=== PATIENT | female | born 1955 | race Caucasian/White ===

== ENCOUNTER 2017-03-12 13:00 | Emergency (ER) | payer OTHER ==
[2017-03-12 13:43] LABS: % IMMATURE GRANULYOCYTES 0.4 % (0.0-1.1); ABSOLUTE IMMATURE GRANULOCYTES 0.03 10^3/uL (0.00-0.10); ADD DIFF? NO; ADD MORPH? NO; ADD SCAN? NO; ATYPICAL LYMPHOCYTE FLAG 0 (0-99); FRAGMENT RBC FLAG 0 (0-99); HEMATOCRIT 42.1 % (38.0-47.0); LEFT SHIFT FLG 0 (0-99); LIPEMIA HEMOLYSIS FLAG 80 (0-99); MEAN CELL HEMOGLOBIN 30.8 pg (27.9-34.1); MEAN CELL HEMOGLOBIN CONCENTR. 33.3 g/dL (32.4-36.7); MEAN CELL VOLUME 92.5 fL (81.5-99.8); MEAN PLATELET VOLUME 11.4 fL (8.7-11.7); PLATELET CLUMPS FLAG 0 (0-99); PLATELET COUNT 187 10^3/uL (150-400); RED BLOOD CELL COUNT 4.55 10^6/uL (4.18-5.33)
--- NOTE | 2017-03-12 13:46 | EDPHY ---
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 She's had intermittent bronchitis for several years and has attributed her chest tightness since May 2016 to either bronchitis or anxiety. She had a "slightly abnormal" EKG in May and was instructed to have an echocardiogram that her perforator operator later decided not to proceed with. Last month, she noticed a rapid heart rate and sweating after taking Adderall. She attributed those symptoms to a panic attack and took diazepam, which alleviated some of her symptoms. She has since traveled to [place] and [facility] and received antibiotics for suspected bronchitis due to the same symptoms. Her symptoms returned while running the [employer] this week, concerning her enough to come into the ED. She complains of coughing, chest tightness, and sore throat. She denies current pain. No known cardiac risk factors. REVIEW OF SYSTEMS: Aside from elements discussed in the HPI, a comprehensive 10-point review of systems was reviewed and is negative. PMH: Hypothyroidism SOCIAL HISTORY: Travels frequently often in medical settings. 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 PHYSICAL EXAM: General:Patient is alert, in no acute distress. ENT:Eyes are normal to inspection. ENT inspection normal. Neck: Normal inspection. Full range of motion. Respiratory:No respiratory distress. Breath sounds normal bilaterally. Cardiovascular: Regular rate and rhythm. Strong peripheral pulses. Normal cap refill. Abdomen:The abdomen is nontender to palpation. There are no peritoneal signs. Back: Normal to inspection. No tenderness to palpation. Skin: Normal color. No rash. Warm and dry. Extremities: Normal appearance. Full range of motion. Neuro: Oriented x3. Normal motor function. Normal sensory function. ED Course: IV established. Labs drawn including CBC, CHEM, troponin, d-dimer. Patient placed on cardiac cath rn. Chest x-ray ordered. Dr. Bergman requested echocardiogram as well. The 12 lead EKG was interpreted by myself. See hard copy and/or "tracemaster" electronic copy for interpretation. Echocardiogram normal per Dr. Bergman. Troponin negative. MDM: This patient presents with ongoing chest pain and respiratory symptoms but has a negative workup here. She has been evaluated by Dr. Bergman who will arrange for follow-up. I see no signs of PE, TAD, PTx, ACS. - Data Points Imaging: I viewed and interpreted images myself Laboratory Results: Laboratory Results 03/12/17 13:23 03/12/17 13:23 03/12/17 03/12/17 03/12/17 13:23 13:23 12:50 WBC 7.43 10^3/uL 10^3/uL (3.80-9.50) RBC 4.55 10^6/uL 10^6/uL (4.18-5.33) Hgb 14.0 g/dL g/dL (12.6-16.3) Hct 42.1 % % (38.0-47.0) MCV 92.5 fL fL (81.5-99.8) MCH 30.8 pg pg (27.9-34.1) MCHC 33.3 g/dL g/dL (32.4-36.7) RDW 13.0 % % (11.5-15.2) Plt Count 187 10^3/uL 10^3/uL (150-400) MPV 11.4 fL fL (8.7-11.7) Neut % (Auto) 62.2 % % (39.3-74.2) Lymph % (Auto) 22.5 % % (15.0-45.0) Mccreary % (Auto) 11.2 % % (4.5-13.0) Eos % (Auto) 3.2 % % (0.6-7.6) Baso % (Auto) 0.5 % % (0.3-1.7) Nucleat RBC Rel Count 0.0 % % (0.0-0.2) Absolute Neuts (auto) 4.62 10^3/uL 10^3/uL (1.70-6.50) Absolute Lymphs (auto) 1.67 10^3/uL 10^3/uL (1.00-3.00) Absolute Monos (auto) 0.83 10^3/uL H 10^3/uL (0.30-0.80) Absolute Eos (auto) 0.24 10^3/uL 10^3/uL (0.03-0.40) Absolute Basos (auto) 0.04 10^3/uL 10^3/uL (0.02-0.10) Absolute Nucleated RBC 0.00 10^3/uL 10^3/uL (0-0.01) Immature Gran % 0.4 % % (0.0-1.1) Immature Gran # 0.03 10^3/uL 10^3/uL (0.00-0.10) D-Dimer < 0.27 ug/mLFEU ug/mLFEU (0.00-0.50) Sodium 140 mEq/L mEq/L (134-144) Potassium 4.3 mEq/L mEq/L (3.5-5.2) Chloride 102 mEq/L mEq/L (97-110) Carbon Dioxide 25 mEq/l mEq/l (22-31) Anion Gap 13 mEq/L mEq/L (8-16) BUN 20 mg/dL mg/dL (7-23) Creatinine 0.7 mg/dL mg/dL (0.6-1.0) Estimated GFR > 60 Glucose 88 mg/dL mg/dL (70-100) Calcium 9.7 mg/dL mg/dL (8.5-10.4) Troponin I < 0.012 ng/mL ng/mL (0-0.034) General Time Seen by Provider: 03/12/17 13:06 Initial Vital Signs: Initial Vital Signs Temperature (C) 36.6 C 03/12/17 13:11 Heart Rate 59 L 03/12/17 13:11 Respiratory Rate 16 03/12/17 13:11 Blood Pressure 112/80 03/12/17 13:11 O2 Sat (%) 92 03/12/17 13:11 O2 Delivery Mode Room Air Allergies/Adverse Reactions: No Known Allergies Allergy (Unverified 04/16/13 12:15) Home Medications: Medication Instructions Recorded Acetaminophen/Codeine 300/30Mg 1 each PO Q6 04/16/13 [Tylenol #3 (RX)] Arnica 120 ml TP 04/16/13 Aspirin [Aspirin 81mg (OTC)] 81 mg PO DAILY 04/16/13 Levothyroxine Sodium [Synthroid] 137 mcg PO 04/16/13 Zolpidem Tartrate [Ambien] 10 mg PO 04/16/13 Albuterol Sulfate [Proair Hfa] 03/12/17 Amphet Asp and D/Amphet [Adderall 03/12/17 10 MG (*)] Roxithromycine 03/12/17 Vivelle-Dot 0.025MG (*) 03/12/17 Departure - Departure Disposition: Home, Routine, Self-Care Clinical Impression: Chest pain Qualifiers: Chest pain type: other chest pain Qualified Code(s): R07.89 - Other chest pain Condition: Good Instructions: Chest Pain (ED) Additional Instructions: Follow up with your perforator operator next week. Return to the ED for any worsening of condition. Referrals: Rafi Bergman MD [Medical Doctor] - As per Instructions Kiara Sen MD [Primary Care Provider] - As per Instructions Report Scribed for: Barber Cruz Report Scribed by: Luana Alvarado Date of Report: 03/12/17 Time of Report: 13:08 Physician Review and Approval Statement: Portions of this note were transcribed by an ED scribe. I personally performed the history, physical exam, and medical decision making; and confirm the accuracy of the information in the transcribed note.
--- NOTE | 2017-03-12 13:48 | CPEKG ---
Heart Rate: 63 RR Interval: 952 P-R Interval: 180 QRSD Interval: 152 QT Interval: 464 QTC Interval: 476 P Piqua: 65 QRS Piqua: -83 T Wave Piqua: 17 EKG Severity - ABNORMAL ECG - EKG Impression: SINUS RHYTHM EKG Impression: RBBB AND LAFB Electronically Signed By: Barber Cruz 12-Mar-2017 15:37:17
[2017-03-12 13:59] LABS: ANION GAP 13 mEq/L (8-16); CALCIUM 9.7 mg/dL (8.5-10.4); CARBON DIOXIDE 25 mEq/l (22-31); CHLORIDE 102 mEq/L (97-110); CREATININE 0.7 mg/dL (0.6-1.0); GLOMERULAR FILTRATION RATE > 60; GLUCOSE 88 mg/dL (70-100); POTASSIUM 4.3 mEq/L (3.5-5.2); SODIUM 140 mEq/L (134-144)
[2017-03-12 14:09] LABS: TROPONIN I < 0.012 ng/mL (0-0.034)
[2017-03-12 15:02] VITALS: BP 122/84; PULSE 62; RESP 18; TEMP 98.4; O2SAT 95
--- NOTE | 2017-03-12 15:03 | ECHO ---
[id number] + + [address] : : [place] [address] : : [phone] + + Adult Echocardiographic Report + ----+ :Name: ZIYAD SANDERSON LStudy Date: 03/12/2017 01:51 PM : : Hospital Admission Number: [id number] : :: 1955 Gender: Female Height: 64 i n : :Age: 61 yrs Race: WH Weight: 135 lb : :Reason For Study: Chest Pain : : BSA: 1.7 met ers2: + ----+ MMode/2D Measurements \T\ Calculations IVSd: 0.55 cm LVIDd: 4.5 cm FS: 38.5 % Ao root diam: LVPWd: 0.90 cm LVIDs: 2.8 cm EDV(Teich): 3.6 cm 94.4 ml LA dimension: ESV(Teich): 3.4 cm 29.3 ml EF(Teich): 69.0 % LVLd ap4: 7.7 cm SV(MOD-sp4): EDV(MOD-sp4): 40.0 ml 53.0 ml LVLs ap4: 5.8 cm ESV(MOD-sp4): 13.0 ml EF(MOD-sp4): 75.5 % Normal Measurement Values: + + :LVIDd (3.5-5.7cm) IVSd (0.6-1.1cm) LVPWd (0.6-1.1cm) Aortic Root (2.0-3.7cm)Left Atrium (1.5-4.0cm): :LV Vol(d) (76-115ml) LV Vol(s) (29-48ml) Ejec Fraction (50-65%)PV Todd (0.6- 1.2m/s) TV Todd (0.4-1.0m/s) : :MV E Todd (0.8-1.0m/s)MV A Todd (0.3-1.0m/s)LVOT Todd (0.7-1.2m/s) Asc Ao Todd ( 0.9-1.8m/s) : + + Doppler Measurements \T\ Calculations MV E max todd: 46.9 cm/sec Ao V2 max: 111.0 cm/sec TR max todd: 233.0 cm/sec MV A max todd: 60.7 cm/sec Ao max P.9 mmHg TR max P.7 mmHg MV E/A: 0.77 RAP systole: 5.0 mmHg RVSP(TR): 26.7 mmHg Left Ventricle The left ventricle is normal in size. There is normal left ventricular wall thickness. Left ventricular systolic function is normal. Ejection Fraction = 60-65%. No regional wall motion abnormalities noted. Right Ventricle The right ventricle is normal in size and function. Atria The left atrial size is normal. Right atrial size is normal. The interatrial septum is intact with no evidence for an atrial septal defect. Mitral Valve The mitral valve is normal in structure and function. There is no evidence of mitral valve prolapse. There is no mitral valve stenosis. There is trace mitral regurgitation. Tricuspid Valve Normal tricuspid valve. There is trace to mild tricuspid regurgitation. Aortic Valve The aortic valve is trileaflet. The aortic valve opens well. There is no aortic stenosis. Trace aortic regurgitation. Pulmonic Valve The pulmonic valve is normal in structure and function. There is no pulmonic valvular regurgitation. Great Vessels The aortic root is normal size. Pericardium/Pleural Trivial anterior pericardial effusion. Conclusion A complete two-dimensional transthoracic echocardiogram was performed (2D, M-mode, Doppler and color flow Doppler). Left ventricular systolic function is normal. Ejection Fraction = 60-65%. There is trace mitral regurgitation. There is trace to mild tricuspid regurgitation. Trace aortic regurgitation. Trivial anterior pericardial effusion Final Reading Physician: Jewel Rosado signed on 03/12/2017 03:02 PM Ordering Physician: Barber Cruz Performed By: Rosita Gruber RDCS
== END 2017-03-12 15:30 | disposition home or self-care (01) ==
DX: R07.89 Other chest pain (principal); Z79.82 Long term (current) use of aspirin